=== PATIENT | female | born 1995 | race African-American/Black ===

== ENCOUNTER 2016-11-22 14:04 | Emergency (ER) | payer OTHER, MEDICAID ==
[~2016-11-22] VITALS: Ht 165.1 cm; Wt 51.7 kg
[2016-11-22 14:28] VITALS: BP 93/66
[2016-11-22] MEDS ORDERED: Cyclobenzaprine 10mg Tab ORAL ONE (14:45)
[2016-11-22 16:29] VITALS: BP 99/63
[2016-11-22] MEDS ORDERED: CYCLOBENZAPRINE10 MG ORAL (17:00)
[2016-11-22] MEDS ORDERED: IBUPROFEN600 MG ORAL (17:00)
--- NOTE | 2016-11-22 17:23 | Diagnostic Imaging Report ---
Indication: PAIN Technique: 3 views of the cervical spine Comparison: none Findings: Bony alignment is normal. No prevertebral soft tissue swelling. No acute fractures. No dislocations. Vertebral body heights and disc spaces are preserved. Impression: Negative
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
--- NOTE | 2016-11-23 13:19 | Diagnostic Imaging Report ---
Indication: Trauma. Comparison: None Findings: 4 views of the right chest wall was obtained for evaluation of the ribs. Bony mineralization appears normal. There is no acute fracture identified. There is no soft tissue swelling demonstrated. The lung is essentially clear. The costophrenic angle is sharp. Other osseous structures visualized are unremarkable. Impression: Negative unilateral rib series
== END 2016-11-22 16:29 | disposition home or self-care (01) ==
LOC: EMR 14:46
DX: S22.41XA Multiple fractures of ribs, right side, initial encounter for closed fracture (principal); V43.52XA Car driver injured in collision with other type car in traffic accident, initial encounter; Y93.9 Activity, unspecified; Y92.410 Unspecified street and highway as the place of occurrence of the external cause; S29.012A Strain of muscle and tendon of back wall of thorax, initial encounter
CPT/HCPCS: 72040; 81025; 99284